=== PATIENT | male | born 1965 | race Caucasian/White ===

== ENCOUNTER 2018-12-16 07:01 | Emergency (ER) | payer SELFPAY ==
[~2018-12-16] VITALS: Ht 167.6 cm; Wt 76.0 kg
[2018-12-16 07:06] VITALS: BP 157/90
--- NOTE | 2018-12-16 07:41 | NUR ---
FIRST CONTACT WITH PT. PT C/O COUGH AND COLD SYMPTOMS X 2WEEKS. R SIDED EAR PAIN STARTING 2 DAYS AGO. BLOODY DRAINAGE FROM R EAR. DENIES ANY RECENT HEAD TRAUMA. PT'S AOX4. RESPS EVEN AND UNLABORED. PA AT BEDSIDE TO EVALUATE AT THIS TIME.
--- NOTE | 2018-12-16 07:46 | NUR ---
PT GIVEN DC INSTRUCTIONS AND SCRIPTS. PT EDUCATED REGARDING DC MEDICATIONS. PT'S AOX4. RESPS EVEN AND UNLABORED. NO ACUTE DISTRESS AT DC. PT AMB TO DC WITH STEADY GAIT.
== END 2018-12-16 07:47 | disposition home or self-care (01) ==
LOC: ED 07:40
DX: H65.01 Acute serous otitis media, right ear (principal); H72.91 Unspecified perforation of tympanic membrane, right ear; J00 Acute nasopharyngitis [common cold]
CPT/HCPCS: 99283

== ENCOUNTER 2019-04-21 13:06 | Emergency (ER) | payer MEDICAID ==
[~2019-04-21] VITALS: Ht 167.6 cm; Wt 80.1 kg
[2019-04-21 13:27] VITALS: BP 130/83
--- NOTE | 2019-04-21 13:32 | NUR ---
Received report from BRUNO Tomlinson. All questions answered. NADN. No needs expressed. Assuming care of pt at this time.
--- NOTE | 2019-04-21 13:59 | NUR ---
Patient given discharge instructions and they have confirmed that they understand the instructions. Patient ambulatory with steady gait. Pt left with d/c paperwork, prescription, referall information, and all personal belongings.
== END 2019-04-21 14:02 | disposition home or self-care (01) ==
LOC: ED 13:52
DX: K40.90 Unilateral inguinal hernia, without obstruction or gangrene, not specified as recurrent (principal)
CPT/HCPCS: 99281

== ENCOUNTER 2020-01-25 09:33 | Emergency (ER) | payer MEDICAID ==
[~2020-01-25] VITALS: Ht 167.6 cm; Wt 77.0 kg
[2020-01-25 09:37] VITALS: BP 118/84
--- NOTE | 2020-01-25 09:48 | NUR ---
PT CAME IN CO OF RIGHT HAND PAIN AND USING A POWER DRILL. THE DRILL TORQUED HIS WRIST.
== END 2020-01-25 10:54 | disposition home or self-care (01) ==
LOC: ED 10:04
DX: S62.324A Displaced fracture of shaft of fourth metacarpal bone, right hand, initial encounter for closed fracture (principal); F17.200 Nicotine dependence, unspecified, uncomplicated; W29.8XXA Contact with other powered hand tools and household machinery, initial encounter; Y93.89 Activity, other specified; Y92.098 Other place in other non-institutional residence as the place of occurrence of the external cause; Y99.8 Other external cause status
CPT/HCPCS: 29125; 99283

== ENCOUNTER 2020-03-14 13:30 | Emergency (ER) | payer MEDICAID ==
[~2020-03-14] VITALS: Ht 167.6 cm; Wt 75.0 kg
[2020-03-14 13:51] VITALS: BP 119/79
--- NOTE | 2020-03-14 14:19 | NUR ---
NO ANSWER FROM LOBBY X1
[2020-03-14 15:28] LABS: ALANINE AMINOTRANSFERASE 31 U/L (12-78); ALBUMIN 3.8 g/dL (3.4-5.0); ANION GAP 5 mmol/L (5-15); CALCIUM 8.9 mg/dL (8.5-10.1); CHLORIDE 108 mmol/L (98-107); CREATININE 0.88 mg/dL (0.7-1.3)
[2020-03-14 15:30] LABS: ALKALINE PHOSPHATASE 71 U/L (45-117); BILIRUBIN,TOTAL 0.7 mg/dL (0.2-1.0); TOTAL PROTEIN 7.6 g/dL (6.4-8.2)
[2020-03-14 15:31] LABS: BASOPHILS % (AUTO) 0 % (0-1); EOSINOPHILS % (AUTO) 1 % (1-7); LYMPHOCYTES % (AUTO) 14 % (22-44); MEAN CORPUSCULAR HEMOGLOBIN 31.3 pg (27.5-34.5); MEAN CORPUSCULAR HGB CONC 33.4 g/dL (33.2-36.2); MEAN PLATELET VOLUME 8.5 fL (7.4-10.4); MONOCYTES % (AUTO) 7 % (2-9); NEUTROPHILS % (AUTO) 77 % (42-75); PLATELET COUNT 255 x10^3/uL (130-400); RED BLOOD COUNT 4.38 x10^6/uL (4.38-5.82); RED CELL DISTRIBUTION WIDTH 13.5 % (9.4-14.8)
[2020-03-14 15:32] LABS: MD NO
--- NOTE | 2020-03-14 16:10 | NUR ---
PT TO RM FROM [facility]OB[facility]
[2020-03-14] MEDS ORDERED: IBUPROFEN 200 MG TABLET ONE (16:42)
[2020-03-14] MEDS ORDERED: IBUPROFEN 600 MG TABLET PO ONE (17:00)
== END 2020-03-14 17:00 | disposition home or self-care (01) ==
LOC: ED 16:58
DX: L03.116 Cellulitis of left lower limb (principal)
CPT/HCPCS: 36415; 80053; 83605; 84145; 85025; 87040; 99285